=== PATIENT | female | born 1970 | race Caucasian/White ===

== ENCOUNTER 2019-08-13 00:25 | Day surgery (SDC) | payer BC, SELFPAY ==
[2019-08-06 13:47] VITALS: BMI 26.4
--- NOTE | 2019-08-11 13:57 | WPDANESEPP ---
Anes - Eval Pre Procedure Procedure: Operation Date: 08/13/19 09:00 Proposed Procedures p Screening Colonoscopy - Scar Garcia MD Date/Time: 08/11/19 13:57 Pre Op Diagnosis: Neoplasm Screening/ Fam Hx Colon Ca Patient Data Age: 48 Gender: F Height: 5 ft 5 in Weight: 72 kg Allergies Allergy/AdvReac Type Severity Reaction Status Date / Time codeine AdvReac Mild Nausea Verified 08/06/19 13:43 Home Medications Medication Instructions Recorded Confirmed Type linaclotide 290 mcg capsule 290 mcg PO QAM #90 cap 05/08/19 08/06/19 Rx sumatriptan 20 mg/actuation nasal 20 mg NASAL Q2H PRN #6 each 06/18/19 08/06/19 Rx spray fluoxetine 20 mg capsule 20 mg PO DAILY #30 cap 07/17/19 08/06/19 Rx topiramate 100 mg tablet 100 mg PO HS 07/25/19 08/06/19 History Compazine PRN 08/06/19 History pregabalin [Lyrica] 150 mg PO BID 08/06/19 08/06/19 History topiramate [Topamax] 50 mg PO BID 08/06/19 08/06/19 History tramadol 50 mg PO QAM 08/06/19 08/06/19 History Patient hx anesthesia problems: none Family hx anesthesia problems: none PMFSH Past Medical History Medical History (Updated 08/11/19 @ 13:57 by Bruna Major CRNA) Benign cyst of right breast Breast lump Depression Eating disorder Fibromyalgia History of kidney stones Migraine botox ever 3 months Normal colonoscopy (~2014) Surgical History Surgical History (Updated 08/11/19 @ 13:58 by Bruna Major CRNA) H/O knee surgery (~1989) History of breast lump/mass excision Social History Social History Smoking status: Never smoker Second hand tobacco smoke exposure: Yes Alcohol intake: never Exam Day of Procedure 08/11/19 13:57
[2019-08-13 08:06] VITALS: BP 112/71; PULSE 69; RESP 20; TEMP 36.7; O2SAT 100
[2019-08-13] MEDS: LACTATED RINGERS 1,000 ML 150 ML IV CONT (08:21)
--- NOTE | 2019-08-13 08:26 | PM.HPGS ---
History of Present Illness History of Present Illness Consent: Risks, benefits, and alternatives have been discussed and questions answered. Patient agrees to proceed with procedure. Chief complaint: Neoplasm Screening/ Fam Hx Colon Ca Narrative: Denita Garland is a 48 year old female with a strong family history of colon cancer. Her father and several of her paternal uncles had colon cancer PMF Past Medical History Medical History Benign cyst of right breast Breast lump Depression Eating disorder Fibromyalgia History of kidney stones Migraine botox ever 3 months Normal colonoscopy (~2014) Surgical History Surgical History H/O knee surgery (~1989) History of breast lump/mass excision Family History Family History Other Diabetes mellitus Family history of arthritis Family history of cardiovascular disease Family history of multiple sclerosis Hypertension Social History Social History Smoking status: Never smoker Second hand tobacco smoke exposure: Yes Alcohol intake: never Meds Home Medications and Allergies Home Medications Medication Instructions Recorded Confirmed Type linaclotide 290 mcg capsule 290 mcg PO QAM #90 cap 05/08/19 08/06/19 Rx sumatriptan 20 mg/actuation nasal 20 mg NASAL Q2H PRN #6 each 06/18/19 08/06/19 Rx spray fluoxetine 20 mg capsule 20 mg PO DAILY #30 cap 07/17/19 08/06/19 Rx topiramate 100 mg tablet 100 mg PO HS 07/25/19 08/06/19 History Compazine PRN 08/06/19 History pregabalin [Lyrica] 150 mg PO BID 08/06/19 08/06/19 History topiramate [Topamax] 50 mg PO BID 08/06/19 08/06/19 History tramadol 50 mg PO QAM 08/06/19 08/06/19 History Allergies Allergy/AdvReac Type Severity Reaction Status Date / Time codeine AdvReac Mild Nausea Verified 08/13/19 08:01 Vital Signs Vital Signs - 24 hr 08/13/19 08:06 Temperature 36.7 C Pulse Rate 69 Respiratory Rate 20 Blood Pressure 112/71 Pulse Oximetry 100 Exam Const: General: alert Orientation/consciousness: patient oriented x3 Resp: Auscultation: clear to auscultation bilaterally Cardio: Rhythm: regular rhythm GI: GI Palp: Yes Soft to palpation and No Tenderness to palpation present (GI) Neuro: General: patient oriented x3 Assessment and Plan Assessment and plan (1) Family history of colon cancer: Code(s): Z80.0 - Family history of malignant neoplasm of digestive organs Status: Acute Assessment and Plan: Colonoscopy with possible biopsy or polypectomy or cautery or injection of substances.
--- NOTE | 2019-08-13 08:36 | P.PNAN_ITS ---
Anes - Eval Final PreProcedure Day of Procedure 08/13/19 08:36 Patient weight: normal Heart: regular rate and rhythm Lungs: clear to auscultation Airway: Mallampati scale class 1 Neurological: alert and oriented Last oral intake: >/= 8 hours ASA classification: II Emergent: no Anesthetic plan: proceed Anesthesia type and monitoring: general GIVS and standard monitoring Informed Consent: The patient's anesthetic plan and its attendant risks and be nefits were discussed with the patient/family/POA. Questions were solicited and answers provided to the satisfaction of the patient/family/POA.
[2019-08-13 09:06] VITALS: BP 85/49; PULSE 85; RESP 18; O2SAT 100
[2019-08-13 09:16] VITALS: BP 84/46; PULSE 78; RESP 20; O2SAT 100
[2019-08-13 09:26] VITALS: BP 94/51; PULSE 83; RESP 20; O2SAT 100
[2019-08-13 09:35] VITALS: BP 101/66; PULSE 75; RESP 24; O2SAT 100
== END 2019-08-13 09:42 | disposition home or self-care (01) ==
PROVIDERS: PCP Family Medicine; Visit Provider Internal Medicine Gastroenterology
PROC: 0DJD8ZZ Inspection of Lower Intestinal Tract, Via Natural or Artificial Opening Endoscopic (ICD-10-PCS; CPT 45378; principal; 2019-08-13 09:00)
DX: Z12.11 Encounter for screening for malignant neoplasm of colon (principal); M79.7 Fibromyalgia; F32.9 Major depressive disorder, single episode, unspecified
CPT/HCPCS: 45378; J2704; J7120